=== PATIENT | female | born 1990 | race Hispanic/Latino ===

== ENCOUNTER 2016-09-30 18:18 | Emergency (ER) | payer OTHER ==
[~2016-09-30] VITALS: Ht 162.6 cm; Wt 70.5 kg
[2016-09-30] MEDS ORDERED: [UNRECOGNIZED DRUG - CODE] EX (18:27)
[2016-09-30] MEDS ORDERED: NS 1,000 ML IV ONE (19:00)
[2016-09-30] MEDS ORDERED: METOCLOPRAMIDE INJ 10MG/2ML VIAL (J2765) IV ONE (19:00)
[2016-09-30 19:39] LABS: BASO % 0.4 % (0.0-1.0); EOS % 0.4 % (0.0-3.0); LARGE UNSTAINED CELL # 0.1 K/mm3 (0.0-0.4); LYMPH # 1.6 K/mm3 (1.5-6.5); LYMPH % 23.9 % (24.0-44.0); MEAN CORPUSCULAR HEMOGLOBIN 27.1 pg (27.0-33.0); MEAN CORPUSCULAR HGB CONC 32.5 g/dl (32.0-36.5); MEAN CORPUSCULAR VOLUME 83.5 fl (80.0-96.0); MONO # 0.3 K/mm3 (0.0-0.8); MONO % 5.1 % (0.0-5.0); NEUTROPHILS # 4.5 K/mm3 (1.8-7.7); NEUTROPHILS % 68.3 % (36.0-66.0); PLATELET COUNT, AUTOMATED 235 k/mm3 (150-450); RED CELL DISTRIBUTION WIDTH 15.8 % (11.5-14.5); WHITE BLOOD COUNT 6.6 K/mm3 (4.0-10.0)
[2016-09-30 19:44] LABS: CONTROL LINE HCG INT CTR LINE PRESENT
[2016-09-30 19:48] LABS: ANION GAP 8 MEQ/L (8-16); BLOOD UREA NITROGEN 10 MG/DL (7-18); CALCIUM LEVEL 9.1 MG/DL (8.5-10.1); CARBON DIOXIDE LEVEL 27 MEQ/L (21-32); CHLORIDE LEVEL 107 MEQ/L (98-107); CREATININE FOR GFR 0.67 MG/DL (0.55-1.02); GLOMERULAR FILTRATION RATE > 60.0 (>60); GLUCOSE, FASTING 91 MG/DL (70-105); POTASSIUM SERUM 3.9 MEQ/L (3.5-5.1); SODIUM LEVEL 142 MEQ/L (136-145)
[2016-09-30 20:40] VITALS: BP 99/63
--- NOTE | 2016-09-30 22:10 | REPUSA ---
Clinical history: Pain. Findings: Real-time transabdominal and transvaginal ultrasound images of the pelvis were obtained. An anteverted uterus is noted, measuring 8.0 x 3.1 by 4.1 cm. The uterus demonstrates normal echotextur e and echogenicity. The endometrial stripe measures 10 mm and is within normal limits. The right ovar y measures 2.8 x 1.8 x 2.6 cm. The left ovary measures 3.5 x 2.5 x 2.5 cm. There is a complex left o varian cyst measuring 2.2 x 1.7 x 1.9 cm. No adnexal masses are seen. Color Doppler flow is seen with in both ovaries. There is no evidence of free fluid. Impression: No evidence of an intrauterine . Complex left ovarian cyst. If there is continue d clinical concern, follow-up with serial serum beta hCG levels is recommended.
--- NOTE | 2016-10-01 13:43 | ED PDOC ---
Post-Departure Follow-Up dr guerin faxed formal report of pelvis us for fu Atif Romero MD Oct 01, 2016 13:43
== END 2016-09-30 21:31 | disposition home or self-care (01) ==
LOC: M ED 18:18
DX: D62 Acute posthemorrhagic anemia (principal); R42 Dizziness and giddiness; Z33.1 Pregnant state, incidental; Z79.899 Other long term (current) drug therapy
CPT/HCPCS: 76801; 76817; 80048; 81001; 84702; 84703; 85025; 93976; 96374; 99284; J2765